=== PATIENT | male | born 1995 | race Caucasian/White ===

== ENCOUNTER 2017-10-26 07:23 | Emergency (ER) | payer OTHER ==
[2017-10-26 07:31] VITALS: BP 131/92; PULSE 62; TEMP 98.3; BMI 22.8
--- NOTE | 2017-10-26 07:35 | PDOC ---
History of Present Illness - General Chief Complaint: Pain, Acute Stated Complaint: HIT LEFT THUMB WITH HAMMER Time Seen by Provider: 10/26/17 07:33 History Source: Patient Exam Limitations: No Limitations - History of Present Illness Initial Comments: 10/26/17 07:35 21 yo M c/ no pmh, RHD p/w left 1st digit hematoma L hand. Occurred 3 days ago when he accidentally hit his thumb. Denies bony pain, but reports significant pressure at the subungal site. Denies numbness, weakness, tingling. Stated pain persisted so came into ED with father. Past History - Past Medical History Allergies/Adverse Reactions: Allergies Allergy/AdvReac Type Severity Reaction Status Date / Time No Known Allergies Allergy Verified 10/26/17 07:24 Home Medications: Ambulatory Orders NK [No Known Home Medication] 10/26/17 COPD: No Other medical history: DENIES - Immunization History Immunization Up to Date: Yes - Suicide/Smoking/Psychosocial Hx Smoking History: Never smoked Have you smoked in the past 12 months: No Information on smoking cessation initiated: No Hx Alcohol Use: Yes (TWICE A WEEK) Drug/Substance Use Hx: Yes (MARIJUANA) Substance Use Type: None Review of Systems - Review of Systems Able to Perform ROS?: Yes Comments:: 10/26/17 07:36 GENERAL/CONSTITUTIONAL: No fever, weakness. HEAD, EYES, EARS, NOSE AND THROAT: No change in vision. No ear pain or discharge. No sore throat. CARDIOVASCULAR: No chest pain or shortness of breath. RESPIRATORY: No cough, wheezing, or hemoptysis. GASTROINTESTINAL: No abdominal pain, nausea, vomiting, diarrhea, or decreased PO intolerance. GENITOURINARY: No dysuria, frequency, or change in urination. MUSCULOSKELETAL: No joint or muscle swelling or pain. No neck or back pain. + left thumb pain SKIN: No rash NEUROLOGIC: No headache, vertigo, loss of consciousness, or change in strength/ sensation. ENDOCRINE: No increased thirst. No abnormal weight change. HEMATOLOGIC/LYMPHATIC: No anemia, easy bleeding, or history of blood clots. ALLERGIC/IMMUNOLOGIC: No hives or skin allergy. *Physical Exam - Vital Signs Last Vital Signs Temp Pulse Resp BP Pulse Ox 98.3 F 62 18 131/92 100 10/26/17 07:26 10/26/17 07:26 10/26/17 07:26 10/26/17 07:26 10/26/17 07:26 - Physical Exam Comments: 10/26/17 07:36 GENERAL: Awake, alert, and fully oriented, in no acute distress. HEAD: No signs of trauma EYES: PERRLA, EOMI, sclera anicteric, conjunctiva clear ENT: Auricles normal inspection, hearing grossly normal, nares patent, NECK: Normal ROM, supple, EXTREMITIES: Normal range of motion, no edema. No clubbing or cyanosis. No cords, erythema, or tenderness LUE: 2+ radial pulse. Sensation and strength intact throughout median/radian/ ulnar nerve. Able to flex and extend all digits. < 2 sec cap refill. No bony tenderness. +left thumb subungal hematoma. NEUROLOGICAL: Cranial nerves II through XII grossly intact. Normal speech, normal gait SKIN: Warm, Dry, normal turgor, no rashes or lesions noted. Medical Decision Making - Medical Decision Making 10/26/17 07:37 Vital Signs Temp Pulse Resp BP Pulse Ox 98.3 F 62 18 131/92 100 10/26/17 07:26 10/26/17 07:26 10/26/17 07:26 10/26/17 07:26 10/26/17 07:26 +left subungal hematoma. Pt verbally consented for subungal hematoma drainage. With cautery, subungal hematoma drained successfully with significant relief in pressure. Covered with bandaid. Wound and infection precautions given. I discussed the physical exam findings, ancillary test results and final diagnoses with the patient. I answered all of the patient's questions. The patient was satisfied with the care received and felt comfortable with the discharge plan and treatment plan. The patient will call their primary care physician within 24 hours to arrange follow-up and will return to the Emergency Department with any new, persistant or worsening symptoms. *DC/Admit/Observation/Transfer Diagnosis at time of Disposition: Subungual hematoma of finger of left hand Qualifiers: Encounter type: initial encounter Qualified Code(s): S60.10XA - Contusion of unspecified finger with damage to nail, initial encounter - Discharge Dispostion Disposition: HOME Condition at time of disposition: Stable Admit: No - Referrals - Patient Instructions Printed Discharge Instructions: DI for Subungual Hematoma Additional Instructions: You have had cautery to your fingernail. It may continue to ooze blood throughout the day. Apply a bandaid to cover. If you notice any redness or fever, please return to the ER for further evaluation. Wash with soap and water. - Post Discharge Activity
== END 2017-10-26 07:41 | disposition home or self-care (01) ==
LOC: FER 07:23
PROC: 0H9QXZZ Drainage of Finger Nail, External Approach (ICD-10-PCS; principal; 2017-10-26)
DX: S60.112A Contusion of left thumb with damage to nail, initial encounter (principal); W22.8XXA Striking against or struck by other objects, initial encounter; Y93.89 Activity, other specified; Y92.9 Unspecified place or not applicable
CPT/HCPCS: 99281-25